=== PATIENT | female | born 1950 | race Caucasian/White ===

== ENCOUNTER 2016-07-01 11:09 | Emergency (ER) | payer MEDICARE, MEDICAID ==
[~2016-07-01] VITALS: Ht 160 cm; Wt 90.7 kg
[2016-07-01] MEDS ORDERED: LOSA100T15 PO (11:33)
[2016-07-01] MEDS ORDERED: LEVO137T17 PO (11:34)
[2016-07-01] MEDS ORDERED: HYDR25TA4 PO (11:34)
[2016-07-01] MEDS ORDERED: TDAP DIPH,PERTUSS,TET VAC/PF 0.5 ML DISP.SYRIN IM ONE ×2 (11:45→11:57)
[2016-07-01] MEDS ORDERED: LIDOCAINE 1%-EPI 1:100,000 20 ML VIAL TP ONE (11:45)
[2016-07-01] MEDS ORDERED: ACETAMINOPHEN 325 MG TABLET PO ONE (11:45)
[2016-07-01] MEDS ORDERED: LIDOCAINE 1%-EPI 1:100,000 20 ML VIAL ONE (11:57)
[2016-07-01] MEDS ORDERED: ACETAMINOPHEN 325 MG TABLET ONE (11:57)
--- NOTE | 2016-07-01 13:00 | NUR ---
DR SIMPSON INTO SUTURE PATIENT
--- NOTE | 2016-07-01 13:31 | NUR ---
Patient discharged to home in stable conditon WITH DAUGHTER TAKING PATIENT HOME. Written and verbal after care instructions given. Patient verbalizes understanding of instructions. WALKED OUT OF ER WITH STEADY GAIT WITH NO DISTRESS NOTED
[2016-07-01 13:33] VITALS: BP 150/75
== END 2016-07-01 13:34 | disposition home or self-care (01) ==
LOC: ER 11:09
DX: S01.81XA Laceration without foreign body of other part of head, initial encounter (principal); I10 Essential (primary) hypertension; W01.0XXA Fall on same level from slipping, tripping and stumbling without subsequent striking against object, initial encounter; Y93.01 Activity, walking, marching and hiking; Y92.89 Other specified places as the place of occurrence of the external cause; Y99.8 Other external cause status
CPT/HCPCS: 90715; A4217; A4663; J3490

== ENCOUNTER 2016-07-07 13:18 | Emergency (ER) | payer MEDICARE, MEDICAID ==
[~2016-07-07] VITALS: Ht 160 cm; Wt 90.7 kg
[~2016-07-07 13:18] MED LIST: HYDR25TA4 PO; LEVO137T17 PO; LOSA100T15 PO
--- NOTE | 2016-07-07 13:36 | NUR ---
AT BEDSIDE PERFORMING MSE
--- NOTE | 2016-07-07 13:52 | NUR ---
Patient discharged to home in stable conditon. Written and verbal after care instructions given. Patient verbalizes understanding of instructions. No further questions or concerns noted prior on leavnig the ED.
== END 2016-07-07 13:53 | disposition home or self-care (01) ==
LOC: ER 13:22
DX: S01.81XD Laceration without foreign body of other part of head, subsequent encounter (principal); I10 Essential (primary) hypertension; X58.XXXD Exposure to other specified factors, subsequent encounter; Y99.8 Other external cause status; Y92.89 Other specified places as the place of occurrence of the external cause
CPT/HCPCS: A4663